=== PATIENT | female | born 2005 | race Caucasian/White ===

== ENCOUNTER 2025-03-08 17:21 | Emergency (ER) | payer OTHER, SELFPAY ==
[2025-03-08 17:30] VITALS: BP 134/80; PULSE 115; RESP 18; TEMP 36.6; O2SAT 98; BMI 28.5
--- NOTE | 2025-03-08 17:33 | ED.ABDPAIN ---
HPI - Abdominal Pain General Chief Complaint: Abdominal Pain Stated Complaint: abd pain Time Seen by Provider: 03/08/25 22:36 Source: patient Mode of arrival: ambulatory Limitations: no limitations History of Present Illness ED Provider: Dr. Jud Holt HPI narrative: 19-year-old female with no known past medical history who presents for evaluation of persistent right lower-quadrant abdominal pain. She reports the pain began about one month ago, was sudden in onset, and has persisted daily since then with waxing and waning sharp exacerbations. Pain worsened over the last 24 hours and is described as worse while menstruating. She is currently on her menstrual period and notes the flow is thicker and fluctuates throughout the day. Pain improves after taking Midol; she last took a dose around 02:00 today. Associated symptoms include intermittent nausea and episodes of feeling short of breath when the pain is severe. She denies cough or cold symptoms, vomiting, fever, dysuria, hematuria outside of menses, constipation, diarrhea, or blood in stool. She was seen in an outside emergency department on 02/22/[address] abdomen/pelvis demonstrated free fluid in the pelvis concerning for a ruptured ovarian cyst; no surgical intervention was required and the appendix was reportedly normal. Related Data Previous Rx's ?Medication ?Instructions ?Recorded ibuprofen 600 mg tablet 600 mg PO Q8H PRN fever or pain 03/08/25 #30 tabs ondansetron 4 mg disintegrating 4 mg PO Q8H PRN nausea and 03/08/25 tablet vomiting #10 tabs Allergies Allergy/AdvReac Type Severity Reaction Status Date / Time No Known Allergies Allergy Verified 03/08/25 17:32 Review of Systems Review of Systems as per HPI, full review of systems performed and negative but for the above mentioned pertinent positives and negatives. FORMERLY [facility], [facility] Social History Social History Advance Directives: No Advance Directives Information Provided: No Do you have a plan to hurt others: No Plan Physical Exam ED Exam Exam: GENERAL: Well-Appearing, conversant, no acute distress. SKIN: Normal skin color for ethnicity, warm, dry, no rashes noted. HEENT:? Normocephalic, atraumatic, no stridor, posterior oropharynx nonerythematous, dentition intact, EOMI. NECK: Soft, supple, full ROM, midline structures nontender, no step-offs, no deformities, no lymphadenopathy. CHEST: Heart regular rate and rhythm, no murmurs, symmetric chest rise and fall. PULMONARY: Clear to auscultation bilaterally, no labored breathing, no wheezes/rhales/rhonchi. ABDOMINAL: Soft, nondistended, RLQ tenderness to palpation without rebound or guarding, positive bowel sounds in all quadrants. : Deferred. MUSCULOSKELETAL: Normal tone, full range of motion, no deformities, no peripheral edema. NEURO: Alert and oriented x3, CN II through XII intact, equal strength and sensation bilateral upper and lower extremities, no focal neurologic deficits.? PSYCHIATRIC: Normal affect, fluid speech, good eye contact and appropriate demeanor. Vital Signs: Vital Signs - 24 hr 03/08/25 17:30 03/08/25 23:38 03/08/25 23:39 Temperature 98 F 97.9 F 97.9 F Pulse Rate 115 H 73 73 Respiratory Rate 18 16 16 Blood Pressure 134/80 117/63 117/63 Pulse Oximetry 98 99 99 Oxygen Delivery Method Room Air Room Air Room Air BMI result Body Mass Index 28.5 Course Course Course Narrative: This is a Rapid Medical Examination (RME) performed by Delvin Delgado PA-C in triage. Full HPI, ROS, assessment and treatment plan per primary provider in the Main ED. Hx: 19 yo F here w/ constant RLQ abd pain x1 mo, worsening last night. seen at ED in [place] on 02/22, had CT showing free fluid in pelvis ?ruptured cyst. no other findings. assoc nausea without vomiting. Plan: labs, UA Medical Decision Making Medical Decision Making MDM Narrative: 19-year-old female with chronic, intermittently worsening right lower-quadrant abdominal pain most consistent with ovarian cyst?related pain; labs reassuring and exam without signs of acute abdomen. Differential diagnosis is broad and would include appendicitis, ovarian torsion, PID, TOA, if ectopic , pyelonephritis, kidney stone, UTI among many others. A broad-based workup based on history and physical exam was obtained Patient was given ibuprofen for pain control. Problem #1: Right lower-quadrant abdominal pain ? likely ovarian cyst Assessment: Persistent RLQ pain for one month, worsened during menses, improved with NSAID (Midol); prior CT showed pelvic free fluid suggestive of ruptured cyst; current exam lacks peritoneal signs, labs normal. Plan: Administer dose of NSAID. Begin scheduled OTC Midol per package instructions (typically every 8 hours, up to 3?4 doses/day). Educated on red-flag symptoms: intolerable or sudden severe pain, vomiting, fever, or new RLQ pain with fever?return to ED if these occur. Discussed potential benefit of hormonal contraception to reduce cyst recurrence; advised follow-up with OB-GASTROENTEROLOGY PHYSICIAN. Potential for initiating OCP for prevention of ovarian cyst formation. Provided [facility] OB-GASTROENTEROLOGY PHYSICIAN contact information for timely outpatient follow-up; patient to arrange appointment. Problem #2: Microscopic hematuria on UA (menses-related) Assessment: Trace blood in urine likely secondary to current menstruation; no urinary symptoms. Plan: No acute intervention needed. Reassurance provided; will re-evaluate if hematuria persists outside menses. Differential Diagnosis Differential Diagnoses: The differential diagnosis associated with the presentation includes (as above) Admission/Observation Consideration of admission/observation: Escalation of care including admission/observation considered Lab Data MDM Lab Attestation statement: I reviewed the patient's lab results. 03/08/25 17:43 03/08/25 17:43 Labs: Lab Results 03/08/25 03/08/25 Range/Units 17:43 22:23 WBC 7.0 (4.8-10.8) X10*3/uL RBC 4.48 (4.20-5.50) X10*6/uL Hgb 12.5 (12.0-16.0) g/dl Hct 37.3 (37.0-47.0) % MCV 83.3 (80.0-98.0) fL MCH 27.9 (27.0-33.0) pg MCHC 33.5 (31.0-35.0) g/dl RDW 12.2 (11.0-16.0) % Plt Count 272 (160-400) X10*3/uL MPV 11.6 (9.4-12.3) fL Immature Gran % (Auto) 0.4 (0.0-0.4) % Neut % (Auto) 59.4 (45-73) % Lymph % (Auto) 29.4 (20-40) % Spencer % (Auto) 9.2 (2-11) % Eos % (Auto) 1.0 (0-4) % Baso % (Auto) 0.6 (0-2) % Lymph # (Auto) 2.1 (1.2-4.9) X10*3/uL Spencer # (Auto) 0.7 (0.1-1.2) X10*3/uL Eos # (Auto) 0.1 (0.0-0.4) X10*3/uL Baso # (Auto) 0.0 (0.0-0.2) X10*3/uL Abs Immat Gran (auto) 0.03 (0.00-0.03) X10*3/uL Absolute Neuts (auto) 4.2 (2.0-8.3) x10*3/uL Absolute Nucleated RBC 0.000 (0.0-0.012) X10*3/uL Nucleated RBC % (auto) 0.0 (0.0-0.2) /100WBC Sodium 141 (135-145) mmol/L Potassium 3.7 (3.3-5.1) mmol/L Chloride 108 (96-108) mmol/L Carbon Dioxide 24 (22-29) mmol/L Anion Gap 13 (12-20) BUN 11 (9-16) mg/dL Creatinine 0.89 (0.5-1.4) mg/dL Estim Creat Clear Calc 81.9 Estimated GFR > 60 Random Glucose 133 H (60-115) mg/dL Calcium 9.5 (8.4-10.2) mg/dL Magnesium 1.8 (1.6-2.6) mg/dL Total Bilirubin 0.4 (0.0-1.0) mg/dL AST 19 (5-31) U/L ALT 11 (0-31) U/L Alkaline Phosphatase 83 (39-117) U/L Total Protein 7.4 (6.5-8.0) g/dL Albumin 4.8 (3.5-5.0) g/dL Beta HCG, Quant < 2 mIU/mL Urine Color Yellow Urine Appearance Clear Urine pH 6.0 (5.0-9.0) Ur Specific [place] >= 1.030 H (1.005-1.025) Urine Protein Trace (Neg-Trace) mg/dL Urine Glucose (UA) Negative (Negative) mg/dL Urine Ketones Trace (Negative) mg/dL Urine Blood Small (1+) H (Negative) Urine Nitrite Negative (Negative) Ur Leukocyte Esterase Negative (Negative) Urine RBC 11-20 H (0-2) /HPF Urine WBC 0-5 (0-5) /HPF Ur Squamous Epith Cells 0-2 (0-2) /HPF Urine Bacteria None Seen (None Seen) Hyaline Casts 0-2 (0-2) /LPF Independent Historian Clinical information obtained from an independent historian. History obtained from or confirmed by: Spouse External Record Review External record reviewed: Prior outpatient radiology Prescription Management I considered prescription management with: Pain Medication Social Determinants Patient?s care significantly limited by Social Determinants of Health including: Other Social Determinant of Health Medications Administered Discontinued Medications Generic Name Dose Route Start Last Admin Trade Name Freq PRN Reason Stop Dose Admin Ibuprofen 600 mg 03/08/25 23:21 03/08/25 23:31 Ibuprofen 600 Mg Tablet PO 03/08/25 23:22 600 mg ONCE ONE Administration Ondansetron HCl 4 mg 03/08/25 23:21 03/08/25 23:31 Ondansetron Odt 4 Mg Tab.Rapdis TRANSLINGU 03/08/25 23:22 4 mg ONCE ONE Administration Discharge Plan Discharge Clinical Impression: Acute abdominal pain in right lower quadrant, History of ovarian cyst Patient Disposition: Home, Self-Care Instructions: Ovarian Cyst (ED) Additional Instructions: DIAGNOSIS & TREATMENT: You were seen in the Emergency Department for your abdominal pain. We performed blood work and urinalysis which did not reveal any acute abnormalities that would explain your symptoms. FURTHER CARE: We have not found any emergent physical exam or lab abnormalities that would require admission to the hospital today. Many people who come to the ER with abdominal pain do not leave with a specific diagnosis at the end of their visit. In the Emergency Department we try to make sure that there is no emergent problem that needs surgery or antibiotics right now. This does not mean that your evaluation is complete--please be sure to follow up with your regular doctor as additional testing as an outpatient may be indicated Please be certain to drink plenty of fluids over the next several. You should advance your diet as tolerated. You may wish to start with the BRAT diet (bananas, rice, applesauce, toast). WHEN YOU SHOULD BE SEEN NEXT: Please follow-up with your primary care provider within the next 2-3 days for reevaluation of your symptoms. WHEN TO RETURN TO THE ED: Monitor your symptoms closely and return to the emergency department immediately for any new/worsening symptoms, worsening abdominal pain, pain which changes location (particularly if it moved to the right lower quadrant), nausea, vomiting, blood in your stool, black/tarry stools, chest pain, shortness of breath, fevers, chills, night sweats, you are unable to arrange follow-up care, or any other concerning symptoms. Prescriptions: New ondansetron 4 mg tablet,disintegrating 4 mg PO Q8H PRN (Reason: nausea and vomiting) Qty: 10 0RF ibuprofen 600 mg tablet 600 mg PO Q8H PRN (Reason: fever or pain) Qty: 30 0RF Referrals: [facility] [place] [facility] [Provider Group, EDI ARCHITECT] Interventions: ED Discharge Assessment Last Done: 03/08/25 23:39 Discharge Date/Time: 03/08/25 23:39 Print Language: Romansh
[2025-03-08 17:59] LABS: MANUAL DIFF FLAG NO
[2025-03-08 18:00] LABS: Hematocrit 37.3 % (37.0-47.0); Hemoglobin 12.5 g/dl (12.0-16.0); Imm Gran Abs Auto 0.03 X10*3/uL (0.00-0.03); Imm Gran Pct Auto 0.4 % (0.0-0.4); Lymphocytes Absolute Auto 2.1 X10*3/uL (1.2-4.9); Mean Corpuscular HGB Conc 33.5 g/dl (31.0-35.0); Mean Corpuscular Hemoglobin 27.9 pg (27.0-33.0); Mean Corpuscular Volume 83.3 fL (80.0-98.0); NRBC Abs Auto 0.000 X10*3/uL (0.0-0.012); NRBC Pct Auto 0.0 /100WBC (0.0-0.2); Platelet Count 272 X10*3/uL (160-400); Red Blood Count 4.48 X10*6/uL (4.20-5.50); White Blood Count 7.0 X10*3/uL (4.8-10.8)
[2025-03-08 18:21] LABS: Alanine Aminotransferase 11 U/L (0-31); Albumin Level 4.8 g/dL (3.5-5.0); Alkaline Phosphatase 83 U/L (39-117); Anion Gap 13 (12-20); Aspartate Amino Transferase 19 U/L (5-31); Blood Urea Nitrogen 11 mg/dL (9-16); Calcium 9.5 mg/dL (8.4-10.2); Carbon Dioxide 24 mmol/L (22-29); Chloride 108 mmol/L (96-108); Creatinine Clr Calc Pharmacy 81.9; Estimated Glomerular Filt Rate > 60; Magnesium 1.8 mg/dL (1.6-2.6); Potassium 3.7 mmol/L (3.3-5.1); Sodium 141 mmol/L (135-145); Total Protein 7.4 g/dL (6.5-8.0)
--- OUTSIDE RECORDS SUMMARY | 2025-03-08 22:09 | XMS_ITS ---
Author Name [facility] Organization [facility] Results Test Name/Text Value Interpretation Date Range Source C TRACHOMATIS SWAB NEGATIVE Normal 02/25/2025 - [facility] N GONORRHOEAE SWAB NEGATIVE Normal 02/25/2025 - [facility] BUN/CREAT.RATIO 13.0 Normal 02/22/2025 [facility] BILIRUBIN,TOTAL 0.5 mg/dL Normal 02/22/2025 0.3 - 1.2 [facility] ALBUMIN 4.5 g/dL Normal 02/22/2025 3.2 - 4.8 [facility] POTASSIUM SERUM 3.7 mmol/L Normal 02/22/2025 3.5 - 5.1 CT [facility] GLOBULIN 2.0 g/dL Below low normal 02/22/2025 2.2 - 3.5 CT [facility] SODIUM 141.0 mmol/L Normal 02/22/2025 136 - 145 [facility] CREATININE 0.77 mg/dL Normal 02/22/2025 0.55 - 1.02 [facility] CO2 26.0 mmol/L Normal 02/22/2025 20 - 31 [facility] PROTEIN, TOTAL 6.5 g/dL Normal 02/22/2025 5.7 - 8.2 [facility] GLUCOSE 101.0 mg/dL Normal 02/22/2025 74 - 106 [facility] AST (SGOT) 15.0 U/L Normal 02/22/2025 0 - 34 [facility] CHLORIDE 105.0 mmol/L Normal 02/22/2025 98 - 107 [facility] A/G RATIO 2.2 g/dL Normal 02/22/2025 [facility] BUN 10.0 mg/dL Normal 02/22/2025 9 - 23 [facility] ALT (SGPT) 9.0 U/L Below low normal 02/22/2025 10 - 49 C [facility] ALKALINE PHOSPHATASE 88.0 U/L Normal 02/22/2025 45 - 129 [facility] PATIENT FASTING? UNKNOWN Normal 02/22/2025 CT [facility] LIPASE 41.0 U/L Normal 02/22/2025 12 - 53 [facility] GFRE 102.0 Normal 02/22/2025 60 - [facility] HCG, BETA QUANTITATIVE < 2.6 Normal 02/22/2025 [facility] MCV 85.0 fL Normal 02/22/2025 83 - 102 [facility] HGB 11.5 g/dL Below low normal 02/22/2025 12.1 - 15.7 [facility] ABSOLUTE GRANULOCYTES 6.6 K/uL Normal 02/22/2025 2.2 - 7.3 [facility] MCHC 33.5 g/dL Normal 02/22/2025 31 - 36 [facility] ABSOLUTE BASO 0.0 K/uL Normal 02/22/2025 0 - 0.2 [facility] GRANULOCYTES 68.0 % Normal 02/22/2025 23 - 78 [facility] MH BASOPHILS 0.0 % Normal 02/22/2025 0 - 2 [facility] ABSOLUTE NUCLEATED RBC 0.0 K/uL Normal 02/22/2025 0 - 0.012 [facility] MPV 11.0 fL Normal 02/22/2025 8 - 12 [facility] IMMATURE GRANULOCYTES 0.0 % Normal 02/22/2025 0 - 0.45 [facility] NUCLEATED RBC 0.0 % Normal 02/22/2025 0 - 0.2 [facility] ABSOLUTE EOS 0.1 K/uL Normal 02/22/2025 0 - 0.7 [facility] MH HCT 34.3 % Below low normal 02/22/2025 36 - 46 [facility] WBC 9.7 K/uL Normal 02/22/2025 3.7 - 10.3 [facility] ABSOLUTE LYMPHS 2.0 K/uL Normal 02/22/2025 1.5 - 4.9 [facility] RBC 4.06 M/uL Normal 02/22/2025 4 - 5.4 [facility] LYMPHS 21.0 % Normal 02/22/2025 16 - 50 [facility] RDW 12.4 % Normal 02/22/2025 11.1 - 13.3 [facility] MCH 28.0 PG Normal 02/22/2025 27 - 34 [facility] EOSINOPHILS 1.0 % Normal 02/22/2025 0 - 6 [facility] PLATELET COUNT 237.0 K/uL Normal 02/22/2025 150 - 480 [facility] ABSOLUTE IMMATURE GRANULOCYTES 0.0 K/uL Normal 02/22/2025 0 - 0.3 [facility] ABSOLUTE MONOS 0.9 K/uL Normal 02/22/2025 0.2 - 1.5 [facility] MONOCYTES 10.0 % Normal 02/22/2025 0 - [facility] /HPF Above high normal 02/22/2025 0 - 0 [facility] EPI CELLS 2+ Normal 02/22/2025 [facility] RBC 1.0 /HPF Above high normal 02/22/2025 0 - 0 [facility] BACTERIA 1+ Critically abnormal 02/22/2025 - [facility] PROTEIN Negative Normal 02/22/2025 - [facility] NITRITE Negative Normal 02/22/2025 - [facility] SPECIFIC GRAVITY 1.02 Normal 02/22/2025 1.005 - 1.03 [facility] UROBILINOGEN 0.2 mg/dL Normal 02/22/2025 - [facility] GLUCOSE Negative Normal 02/22/2025 - [facility] BLOOD Negative Normal 02/22/2025 - [facility] PH 6.5 Normal 02/22/2025 5 - 8 [facility] KETONES Negative Normal 02/22/2025 - [facility] COLOR Yellow Normal 02/22/2025 - [facility] BILIRUBIN Negative Normal 02/22/2025 - [facility] LEUK. ESTERASE Negative Normal 02/22/2025 - [facility] APPEARANCE Clear Normal 02/22/2025 - [facility] Encounters Encounter Type Encounter Reason Primary Diagnosis Location Date Emergency ABDOMINAL PAIN ABDOMINAL PAIN [facility] 02/21/2025 Care Team Organization Name Specialty Phone Email Start Date End [facility] provided,No Primary Care 02/22/2025 [facility] No provided Primary Care 02/22/2025
[2025-03-08 22:29] LABS: Appearance Urine Clear; Glucose Urine UA Negative (Negative); PH 6.0 (5.0-9.0); Specific Gravity - Urine >= 1.030 (1.005-1.025); UMIC TRIGGER UACC YES
[2025-03-08 23:38] VITALS: BP 117/63; PULSE 73; RESP 16; TEMP 36.6; O2SAT 99
[2025-03-08 23:39] VITALS: BP 117/63; PULSE 73; RESP 16; TEMP 36.6; O2SAT 99
== END 2025-03-08 23:39 | disposition home or self-care (01) ==
PROVIDERS: Physician Assistant Medical; Emergency Provider Emergency Medicine
DX: R10.31 Right lower quadrant pain (principal)
CPT/HCPCS: 36415; 80053; 81001; 83735; 84702; 85025; 99283; 99284